=== PATIENT | male | born 1965 | race Caucasian/White ===

== ENCOUNTER → 2017-02-10 | Outpatient (CLI) | payer MEDICARE | LOC: EMI 17:54 | DX: M54.16 Radiculopathy, lumbar region (principal); M51.27 Other intervertebral disc displacement, lumbosacral region; M99.73 Connective tissue and disc stenosis of intervertebral foramina of lumbar region; M51.26 Other intervertebral disc displacement, lumbar region | CPT/HCPCS: 72148 ==

== ENCOUNTER 2021-09-30 17:23 | Emergency (ER) | payer MEDICARE, OTHER ==
[2021-09-30 18:23] LABS: HEMOGLOBIN 16.1 gm/dl (14.0-17.5); RED BLOOD COUNT 4.88 M/UL (4.20-5.50); WHITE BLOOD COUNT 5.4 K/UL (4.5-11.0)
[2021-09-30 18:43] LABS: BUN/CREATININE RATIO 13 (0-10)
== END 2021-09-30 21:12 | disposition home or self-care (01) ==
LOC: ER1 17:23
PROVIDERS: Emergency Medicine
DX: U07.1 COVID-19 (principal)
CPT/HCPCS: 0240U; 71045; 80053; 85025; 99283